=== PATIENT | female | born 1945 ===

== ENCOUNTER 2016-02-13 12:43 | Emergency (ER) | payer MEDICARE ==
[2016-02-13 14:18] VITALS: BP 157/103
--- NOTE | 2016-02-13 14:56 | UC ---
Complaint Female HPI - HPI Summary HPI Summary: Blood and clots in urine since this morning with bladder cramping, frequency, and slight burning. Denies fever, back pain, or vomiting. - History Of Current Complaint Chief Complaint: UCGU Stated Complaint: BLOOD IN URINE Time Seen by Provider: 02/13/16 14:45 Hx Obtained From: Patient ?: No Onset/Duration: Gradual Onset, Lasting Hours Timing: Constant Severity Initially: Mild Severity Currently: Mild Character: Dull, Burning, Cramping Aggravating Factor(s): Urination Associated Signs And Symptoms: Negative: Fever, Back Pain, Vaginal Bleeding/ Discharge - Allergies/Home Medications Allergies/Adverse Reactions: Allergies Allergy/AdvReac Type Severity Reaction Status Date / Time Codeine Allergy Intermediate GI Upset Verified 01/25/13 03:24 Home Medications: Home Medications Alendronate Sodium [Fosamax-] 02/13/16 [History] Metoprolol Succinate XL TAB* [Toprol XL TAB*] 0.5 tab PO BEDTIME 02/13/16 [ History Confirmed 02/13/16] glipiZIDE TAB* [Glucotrol TAB*] 1 tab PO BID 02/13/16 [History Confirmed ] PMH/Surg Hx/FS Hx/Imm Hx Endocrine History Of: Reports: Diabetes - TYPE 2 Cardiovascular History Of: Reports: Hypertension, Myocardial Infarction Respiratory History Of: Denies: COPD, Asthma - Surgical History Surgical History: Yes Surgery Procedure, Year, and Place: [facility] - Family History Known Family History: Positive: Hypertension - Social History Lives: With Family Alcohol Use: Occasionally Substance Use Type: None Smoking Status (MU): Never Smoked Tobacco - Immunization History Most Recent Influenza Vaccination: 2016 Most Recent Tetanus Shot: UP TO DATE Most Recent Pneumonia Vaccination: NONE Review of Systems Constitutional: Negative Skin: Negative Eyes: Negative ENT: Negative Respiratory: Negative Cardiovascular: Negative Gastrointestinal: Negative Genitourinary: Dysuria, Hematuria, Urgency Motor: Negative Neurovascular: Negative Musculoskeletal: Negative Neurological: Negative Psychological: Negative All Other Systems Reviewed And Are Negative: Yes Physical Exam Triage Information Reviewed: Yes Appearance: Well-Appearing, No Pain Distress, Well-Nourished Vital Signs: Initial Vital Signs Temp 98.9 F 02/13/16 14:14 Pulse 90 02/13/16 14:14 Resp 18 02/13/16 14:14 BP 157/103 02/13/16 14:14 Pulse Ox 100 02/13/16 14:14 Vital Signs Reviewed: Yes Eye Exam: Normal Eyes: Positive: Conjunctiva Clear ENT Exam: Normal ENT: Positive: Normal ENT inspection, Hearing grossly normal, Pharynx normal, TMs normal Dental Exam: Normal Neck exam: Normal Neck: Positive: Supple, Nontender, No Lymphadenopathy Respiratory Exam: Normal Respiratory: Positive: Chest non-tender, Lungs clear, Normal breath sounds, No respiratory distress, No accessory muscle use Cardiovascular Exam: Normal Cardiovascular: Positive: RRR, No Murmur Abdomen Description: Negative: Nontender, CVA Tenderness (R), CVA Tenderness (L) Musculoskeletal Exam: Normal Neurological Exam: Normal Psychological Exam: Normal Skin Exam: Normal Complaint Female Dx - Differential Dx/Diagnosis Provider Diagnoses: hemorrhagic cystitis Discharge - Discharge Plan Condition: Stable Disposition: HOME Prescriptions: Phenazopyridine HCl [Pyridium] 200 mg PO TID PRN #6 tab PRN Reason: Pain Sulfamethox/Trimethoprim DS* [Bactrim DS 800/160 TAB*] 1 tab PO BID #10 tab Patient Education Materials: Urinary Tract Infection in Women (ED), Hematuria ( ED) Additional Instructions: You should have rapid improvement over the first 24 hours. If you see no improvement after 48 hours, please call here for culture results.
== END 2016-02-13 15:03 | disposition home or self-care (01) ==
LOC: UCEAST 12:43
DX: N30.91 Cystitis, unspecified with hematuria (principal); B96.20 Unspecified Escherichia coli [E. coli] as the cause of diseases classified elsewhere; Z88.6 Allergy status to analgesic agent; E11.9 Type 2 diabetes mellitus without complications; Z79.84 Long term (current) use of oral hypoglycemic drugs; I25.2 Old myocardial infarction; I10 Essential (primary) hypertension
CPT/HCPCS: 87077; 87086; 87186; 99212; G0463

== ENCOUNTER 2016-09-05 07:02 | Emergency (ER) | payer MEDICARE ==
[2016-09-05 07:12] VITALS: BP 169/101
--- NOTE | 2016-09-05 07:23 | UC ---
getachew Braga Timothy, scribed for Shana Alvarez MD on 09/05/16 at 0716 . Complaint Female HPI - HPI Summary HPI Summary: Yari Naik is a 71 yo female presenting to [facility] with 3/10 dysuria and hematuria since 0400 this morning. She also notes clotting in her urine. No fevers, chills, No nausea, vomiting. mild suprapubic pain. . Pt with Hx of frequent UTI, most recently last year. No difficulty with antibiotics. No vaginal discharge, itching. Pt also denies any self-medication. PT has pyridium but did not take. Her MHx includes angina, CAD, ID [id number], cardiac catheterization, HLD, HTN, DM II. Pt medication list reviewed this visit. - History Of Current Complaint Stated Complaint: URINARY ISSUE Time Seen by Provider: 09/05/16 07:05 Hx Obtained From: Patient Onset/Duration: Sudden Onset, Lasting Hours, Still Present Timing: Constant, Lasting Hours Severity Initially: Moderate Severity Currently: Moderate Pain Intensity: 3 Pain Scale Used: 0-10 Numeric Aggravating Factor(s): Urination Associated Signs And Symptoms: Negative: Fever, Back Pain, Nausea - Allergies/Home Medications Allergies/Adverse Reactions: Allergies Allergy/AdvReac Type Severity Reaction Status Date / Time Codeine Allergy Intermediate GI Upset Verified 09/05/16 07:12 PMH/Surg Hx/FS Hx/Imm Hx Endocrine History: Diabetes Cardiovascular History: Cardiac Disease, Hypertension, Myocardial Infarction - Surgical History Surgical History: Yes Surgery Procedure, Year, and Place: uterine scraping - Family History Known Family History: Positive: Cardiac Disease, Hypertension, Other - rectal CA - Social History Lives: With Family Alcohol Use: Occasionally Substance Use Type: None Smoking Status (MU): Never Smoked Tobacco - Immunization History Most Recent Influenza Vaccination: 2016 Most Recent Tetanus Shot: UP TO DATE Most Recent Pneumonia Vaccination: NONE Review of Systems Constitutional: Negative Skin: Negative Eyes: Negative ENT: Negative Respiratory: Negative Cardiovascular: Negative Gastrointestinal: Negative Genitourinary: Dysuria, Hematuria Motor: Negative Neurovascular: Negative Musculoskeletal: Negative Neurological: Negative Psychological: Negative All Other Systems Reviewed And Are Negative: Yes Physical Exam Triage Information Reviewed: Yes Vital Signs: Initial Vital Signs Temp 97.2 F 09/05/16 07:05 Pulse 100 09/05/16 07:05 Resp 16 09/05/16 07:05 BP 169/101 09/05/16 07:05 Pulse Ox 98 09/05/16 07:05 Vital Signs Reviewed: Yes Eye Exam: Normal Eyes: Positive: Conjunctiva Clear ENT: Positive: Normal ENT inspection, Hearing grossly normal, Pharynx normal, TMs normal Neck exam: Normal Neck: Positive: Supple, Nontender Respiratory Exam: Normal Respiratory: Positive: Chest non-tender, Lungs clear, Normal breath sounds, No respiratory distress, No accessory muscle use Cardiovascular Exam: Normal Cardiovascular: Positive: RRR, No Murmur Abdominal Exam: Normal Abdomen Description: Positive: No Organomegaly, Soft. Negative: Nontender - mild suprapubic discomfort, CVA Tenderness (R), CVA Tenderness (L) Bowel Sounds: Positive: Present Musculoskeletal Exam: Normal Neurological Exam: Normal Psychological Exam: Normal Skin Exam: Normal Complaint Female Dx - Course Course Of Treatment: Yari Naik is a 71 yo female presenting to [facility] with 3 /10 dysuria and hematuria since 0400 this morning. Pt medication list reviewed this visit. Pt counseled that urine will be sent in for culture. After clinical examination and review of her lab studies, she will be discharged home with UTI with appropriate instructions and follow up. urine culture pending. pt has pyridium. return precautions discussed - Differential Dx/Diagnosis Differential Diagnosis/HQI/PQRI: Urinary Tract Infection Provider Diagnoses: Urinary Tract Infection Discharge - Discharge Plan Condition: Stable Disposition: HOME Prescriptions: Ciprofloxacin TAB* [Cipro 500 MG TAB*] 500 mg PO BID #10 tab Patient Education Materials: Urinary Tract Infection in Women (ED) Referrals: Yana Mojica NP [Nurse Practitioner] - If Needed Additional Instructions: - stay well hydrated. Drink plenty of non-alcoholic, non-caffinated beverages - Take antibiotic as prescribed until gone. - your urine has been sent for additional testing. If you need a different antibiotic - you will receive a call from a member of your care team - Take pyridium as prescribed for discomfort. This will make your urine blaze orange - this is normal - Okay to alternate ibuprofen (Advil, motrin) and tylenol every 3 hours for pain. Take with food Call your doctor or return with questions or concerns The documentation as recorded by the getachew black Timothy accurately reflects the service I personally performed and the decisions made by Antonio nieves Laura, MD.
--- NOTE | 2016-09-06 16:20 | UC ---
Progress - Progress Note Progress Note: please call patient---let her know the urnine culture did not show a UTI and she should get re-checked by here primary care provider in the next 3-5 days <Mavis Rossi - Last Filed: 09/06/16 16:19> Attestation Statement User Type: Provider - I was available for consult. This patient was seen by the advanced practice provider. The patient was not presented to, seen by, or examined by me.-Coby <Shana Alvarez - Last Filed: 09/06/16 20:47>
== END 2016-09-05 07:35 | disposition home or self-care (01) ==
LOC: UCEAST 07:02
DX: N39.0 Urinary tract infection, site not specified (principal); I20.9 Angina pectoris, unspecified; I10 Essential (primary) hypertension; I25.10 Atherosclerotic heart disease of native coronary artery without angina pectoris; I25.2 Old myocardial infarction; E78.5 Hyperlipidemia, unspecified; E11.9 Type 2 diabetes mellitus without complications
CPT/HCPCS: 81003; 87086; 99212; G0463

== ENCOUNTER 2022-02-20 16:03 | Inpatient (IN) ==
[2022-02-20 16:24] LABS: ABS Basophils 0.1 10^3/ul (0-0.2); ABS Lymphocytes 2.9 10^3/ul (1.0-4.8); ABS Monocytes 0.7 10^3/ul (0-0.8); ABS Neutrophils 7.4 10^3/ul (1.5-7.7); Eosinophil % 0.1 %; Hematocrit 39 % (35-47); Hemoglobin 13.2 g/dL (12.0-16.0); Lymphocyte % 26.3 %; Mean Corpuscular HGB Conc 34 g/dL (31-36); Mean Corpuscular Hemoglobin 31 pg (27-31); Mean Corpuscular Volume 92 fL (80-97); Mean Platelet Volume 6.5 fL (7.4-10.4); Nucleated Red Blood Cells % 0.1; Platelet Count 339 10^3/uL (150-450); Red Blood Count 4.27 10^6 /uL (3.70-4.87); Red Cell Distribution Width 13 % (10-15)
[2022-02-20 16:46] LABS: High Sens Troponin Baseline 293 pg/mL (<15)
[2022-02-20 17:27] LABS: ALT 15 U/L (7-52); Albumin/Globulin Ratio 1.5 (1-3); Alkaline Phosphatase 45 U/L (35-149); Blood Urea Nitrogen 10 mg/dL (6-24); CO2 Carbon Dioxide 25 mmol/L (22-32); Chloride 98 mmol/L (101-111); Globulin 2.7 g/dL (2-4); Glucose 199 mg/dL (70-100); Sodium 135 mmol/L (135-145); Total Protein 6.7 g/dL (6.4-8.9); eGFR CKD-EPI 98.1 (>60)
[2022-02-20 17:35] LABS: Anion Gap 12 mmol/L (2-11)
[2022-02-20 17:44] LABS: High Sensitivity Troponin 1 Hr 592 pg/mL (<15)
[2022-02-20] MEDS ORDERED: fentaNYL 100 mcg/2 ml 50 MCG/ML VIAL IV SLOW PU ONE (18:10)
[2022-02-20] MEDS ORDERED: fentaNYL 100 mcg/2 ml 50 MCG/ML VIAL ONE ×2 (18:11→19:00)
[2022-02-20] MEDS ORDERED: Iodixanol (CONTRAST) 320 MG/ML 100 ML SDV IV ONE (18:15)
[2022-02-20] MEDS ORDERED: Ondansetron 4 mg VIAL 2 MG/ML 2 ml VIAL IV ONE (18:28)
[2022-02-20] MEDS ORDERED: Ondansetron 4 mg VIAL 2 MG/ML 2 ml VIAL ONE (18:28)
[2022-02-20] MEDS ORDERED: Heparin - STEMI 5,000 UNITS/ML 1 ml VIAL IV ONE (18:48)
[2022-02-20] MEDS ORDERED: Heparin 2 UNITS/ML 1000 mls 2,000 ML IV ONE (18:49)
[2022-02-20] MEDS ORDERED: nitroGLYCERIN DRIP 25,000 MCG/250 ML BTL ONE (18:49)
[2022-02-20] MEDS ORDERED: Heparin 1,000 UNIT/ML 10 ml (10,000 UNITS) CATHLAB/DIALYSIS ONE ×2 (18:49→19:01)
[2022-02-20] MEDS ORDERED: VERAPAMIL 2.5 MG/ML 2 ML VIAL ** 5 mg/2 ml ONE (18:49)
[2022-02-20] MEDS ORDERED: Iohexol 350 (CONTRAST) 100 ML PAK IV ONE (18:50)
[2022-02-20] MEDS ORDERED: Lidocaine 1% MPF 5 ML VIAL ONE (18:51)
[2022-02-20] MEDS ORDERED: Midazolam 5 mg/5 ml VIAL 1 mg/ml 5 ml VIAL (5 mg) ONE (19:00)
[2022-02-20] MEDS ORDERED: Bivalirudin 250 MG VIAL ONE (19:17)
[2022-02-20] MEDS ORDERED: NS 0.9% 1000 ml BAG 1,000 ML IV SCH (20:15)
[2022-02-20 22:53] LABS: Urine Appearance Clear; Urine Bacteria Absent (Absent); Urine Bilirubin Negative (Negative); Urine Blood Negative (Negative); Urine Color Yellow; Urine Glucose 3+(>=500 mg/dL) (Negative); Urine Ketones 2+ (Negative); Urine Nitrite Positive (Negative); Urine Protein 1+(30 mg/dL) (Negative); Urine Red Blood Cell Absent (Absent); Urine Squamous Epithelial Cell Present (Absent); Urine Urobilinogen Negative (Negative); Urine White Blood Cell 1+(6-10/hpf) (Absent)
[2022-02-20 22:55] LABS: Urine Specific Gravity > 1.060 (1.002-1.030)
[2022-02-20] MEDS ORDERED: Heparin 5000 UNITS/ML 1 mL VIAL IV SCH (23:00)
[2022-02-20 23:14] LABS: Calcium 8.5 mg/dL (8.6-10.3); Potassium 4.7 mmol/L (3.5-5.0)
[2022-02-20] MEDS ORDERED: Heparin DRIP 25,000 UNITS BAG 25,000 UNITS/500 ML BAG IV SCH (23:45)
[2022-02-20 23:48] LABS: Magnesium 1.8 mg/dL (1.9-2.7)
[2022-02-20] MEDS ORDERED: Magnesium Sulfate 2 gm BAG 2 GM/50 ML BAG IVPB ONE (23:52)
[2022-02-20 23:59] LABS: Phosphorus 4.2 mg/dL (2.5-5.0); eGFR CKD-EPI 97.1 (>60)
[2022-02-21] MEDS ORDERED: Acetaminophen IV 1 GM/100ML 1,000 MG/100 ML BAG IV ONE (00:35)
[2022-02-21] MEDS: Sulfamethox/Trimethoprim DS TAB 800/160 mg PO SCH ×2 (00:39→08:35)
[2022-02-21] MEDS ORDERED: Ondansetron 4 mg VIAL 2 MG/ML 2 ml VIAL IV PRN (04:17)
[2022-02-21] MEDS ORDERED: Ondansetron 4 mg VIAL 2 MG/ML 2 ml VIAL ONE (04:19)
[2022-02-21 04:54] LABS: ABS Lymphocytes 1.6 10^3/ul (1.0-4.8); ABS Monocytes 0.8 10^3/ul (0-0.8); ABS Neutrophils 11.8 10^3/ul (1.5-7.7); Eosinophil % 0.1 %; Hematocrit 37 % (35-47); Hemoglobin 12.7 g/dL (12.0-16.0); Lymphocyte % 11.4 %; Mean Corpuscular HGB Conc 35 g/dL (31-36); Mean Corpuscular Hemoglobin 32 pg (27-31); Mean Corpuscular Volume 91 fL (80-97); Mean Platelet Volume 6.4 fL (7.4-10.4); Platelet Count 326 10^3/uL (150-450); Red Blood Count 4.04 10^6 /uL (3.70-4.87); Red Cell Distribution Width 13 % (10-15); White Blood Count 14.2 10^3/uL (3.5-10.8)
[2022-02-21 06:05] LABS: Blood Urea Nitrogen 12 mg/dL (6-24); CO2 Carbon Dioxide 18 mmol/L (22-32); Chloride 102 mmol/L (101-111); Glucose 255 mg/dL (70-100); Sodium 132 mmol/L (135-145); eGFR CKD-EPI 100.2 (>60)
[2022-02-21 06:13] LABS: Anion Gap 12 mmol/L (2-11)
[2022-02-21 07:23] LABS: Magnesium 2.2 mg/dL (1.9-2.7); Phosphorus 4.3 mg/dL (2.5-5.0)
[2022-02-21] MEDS ORDERED: Sulfur Hexaflouride MICROSPHR 25 MG VIAL ONE (08:04)
[2022-02-21 08:19] LABS: Activated Partial Thrombo Time 40.2 seconds (26.0-38.0); INR 1.11 (0.88-1.18)
[2022-02-21] MEDS ORDERED: Lactated Ringers 1000 ml BAG 1,000 ML IV ONE (08:29)
[2022-02-21] MEDS ORDERED: Aspirin EC 81 mg TAB.EC (enteric coated) PO SCH (09:00)
[2022-02-21] MEDS ORDERED: Dextrose 50% Syringe 50 ml 25 GM/50 ML SYRINGE IV PUSH PRN (10:01)
[2022-02-21] MEDS: Insulin GLARGINE 100 un/ml 10 ml VIAL SUBCUT SCH ×2 (11:05→20:54)
[2022-02-21] MEDS: Enoxaparin 30 MG/0.3 ML SYR SUBCUT SCH (17:14)
[2022-02-22 07:05] LABS: Hematocrit 35 % (35-47); Hemoglobin 11.6 g/dL (12.0-16.0); Mean Corpuscular HGB Conc 34 g/dL (31-36); Mean Corpuscular Hemoglobin 31 pg (27-31); Mean Corpuscular Volume 92 fL (80-97); Mean Platelet Volume 6.9 fL (7.4-10.4); Platelet Count 312 10^3/uL (150-450); Red Blood Count 3.73 10^6 /uL (3.70-4.87); Red Cell Distribution Width 13 % (10-15)
[2022-02-22 07:41] LABS: Calcium 7.6 mg/dL (8.6-10.3); eGFR CKD-EPI 99.1 (>60)
[2022-02-22] MEDS ORDERED: Polyethylene Glycol 3350 17 GM PACKET PO PRN (14:59)
[2022-02-22] MEDS ORDERED: Magnesium Hydroxide LIQ 30 ML UDC PO PRN (14:59)
[2022-02-22] MEDS ORDERED: Senna TAB 8.6 mg TAB PO PRN (14:59)
[2022-02-22] MEDS: Enoxaparin 30 MG/0.3 ML SYR SUBCUT SCH (17:55)
[2022-02-22] MEDS: Insulin GLARGINE 100 un/ml 10 ml VIAL SUBCUT SCH (20:51)
[2022-02-23 06:46] LABS: ABS Lymphocytes 2.4 10^3/ul (1.0-4.8); ABS Monocytes 0.8 10^3/ul (0-0.8); ABS Neutrophils 5.5 10^3/ul (1.5-7.7); Eosinophil % 0.3 %; Hematocrit 33 % (35-47); Hemoglobin 11.1 g/dL (12.0-16.0); Lymphocyte % 27.8 %; Mean Corpuscular HGB Conc 33 g/dL (31-36); Mean Corpuscular Hemoglobin 31 pg (27-31); Mean Corpuscular Volume 92 fL (80-97); Platelet Count 314 10^3/uL (150-450); Red Cell Distribution Width 13 % (10-15); White Blood Count 8.7 10^3/uL (3.5-10.8)
[2022-02-23 07:09] LABS: Calcium 7.8 mg/dL (8.6-10.3); Potassium 4.3 mmol/L (3.5-5.0); eGFR CKD-EPI 100.2 (>60)
[2022-02-23 10:48] LABS: Ferritin 131.1 ng/mL (11-307)
[2022-02-23] MEDS: Enoxaparin 30 MG/0.3 ML SYR SUBCUT SCH (18:03)
[2022-02-23] MEDS: Insulin GLARGINE 100 un/ml 10 ml VIAL SUBCUT SCH (20:21)
[2022-02-24 12:17] LABS: ABS Lymphocytes 2.2 10^3/ul (1.0-4.8); ABS Monocytes 0.9 10^3/ul (0-0.8); Eosinophil % 0.2 %; Hematocrit 36 % (35-47); Lymphocyte % 21.4 %; Mean Corpuscular HGB Conc 33 g/dL (31-36); Mean Corpuscular Hemoglobin 31 pg (27-31); Mean Corpuscular Volume 93 fL (80-97); Mean Platelet Volume 6.8 fL (7.4-10.4); Platelet Count 336 10^3/uL (150-450); Red Blood Count 3.93 10^6 /uL (3.70-4.87); Red Cell Distribution Width 13 % (10-15); White Blood Count 10.1 10^3/uL (3.5-10.8)
[2022-02-24 13:24] LABS: Calcium 8.3 mg/dL (8.6-10.3); Potassium 4.9 mmol/L (3.5-5.0); eGFR CKD-EPI 102.5 (>60)
[2022-02-24 13:40] VITALS: BP 108/69
== END 2022-02-24 17:00 | disposition home or self-care (01) | DRG 286 ==
LOC: ED 16:03 → CHICATH 20:12 → SUATTDRO 20:15 → ICU 20:15 → MEDTELE 02-21 15:16
PROVIDERS: ATTEND Internal Medicine